=== PATIENT | male | born 1955 | race Caucasian/White ===

== ENCOUNTER 2018-09-24 07:23 | Day surgery (SDC) | payer OTHER ==
[~2018-09-24] VITALS: Ht 182.9 cm; Wt 85.8 kg
[~2018-09-24 07:23] MED LIST: ATORVASTATIN; IBUPROFEN; LISINOPRIL; NORVASC; PROAIR; SEROQUEL
[2018-09-24 07:58] VITALS: Ht 182.9 cm; Wt 85.8 kg
[2018-09-24 08:13] VITALS: BP 127/76; PULSE 80; RESP 18
--- NOTE | 2018-09-24 08:55 | PREAC ---
Date/Time of Note Date/Time of Note DATE: 09/24/18 TIME: 08:52 Anesthesia Eval and Record Evaluation Time Pre-Procedure Interview DATE: 09/24/18 TIME: 08:52 Age 63 Sex male NPO: 8 hrs Preoperative diagnosis Hx of Polyp Planned procedure Colonoscopy Past Medical History Past Medical History: Includes Cardio: HTN, Dyslipidemia Pulm: Asthma Musculoskeletal: Osteoarthritis Psych: Other (Schitzophrenia) Recreational drugs: Marijuana Surgery & Anesthesia Issues No known issue Meds Anticoagulation: No Beta Marcie within 24 hr: No Reason Beta Marcie not given: Pt. not on B-Marcie Reported Medications [Ibuprofen] No Conflict Check 09/24/18 [Proair] No Conflict Check 09/24/18 [Seroquel] No Conflict Check 09/24/18 [Norvasc] No Conflict Check 09/24/18 [Atorvastatin] No Conflict Check 09/24/18 [Lisinopril] No Conflict Check 09/24/18 Meds reviewed: Yes Allergies Coded Allergies: No Known Allergy (Unverified , 09/24/18) Allergies Reviewed: Yes Labs/Studies Labs Reviewed: Reviewed by anesthesiologist test: N/A Studies: ECG (n/a), CXR (n/a) Pre-procedure Exam Last vitals Vital Signs Date Temp Pulse Resp B/P (MAP) Pulse Ox O2 O2 Flow FiO2 Time Delivery Rate 09/24/18 99.0 80 18 127/76 95 Room Air 08:13 (93) Airway: Adequate mouth opening, Adequate thyromental dist Mallampati: Mallampati II Teeth: Normal Lung: Normal Heart: Normal ASA Physical Status ASA physical status: 3 Emergency: None Planned Anesthetic General/MAC: MAC Planned Pain Management Parenteral pain med Pre-operative Attestations Prior to commencing anesthesia and surgery, the patient was re-evaluated, there was verification of: *The patient's identity *The results of appropriate recent lab work and preoperative vital signs *The above evaluation not changing prior to induction *Anesthetic plan, risk benefits, alternative and complications discussed with patient/family; questions answered; patient/family understands, accepts and wishes to proceed. COLLIN SKY MD Sep 24, 2018 08:55
[2018-09-24] MEDS ORDERED: PROPOFOL 60 ML ONE (09:56)
--- NOTE | 2018-09-24 09:57 | PAC ---
Date/Time of Note Date/Time of Note DATE: 09/24/18 TIME: 09:56 Post-Anesthesia Notes Post-Anesthesia Note Last documented vital signs Vital Signs Date Temp Pulse Resp B/P (MAP) Pulse Ox O2 O2 Flow FiO2 Time Delivery Rate 09/24/18 99.0 80 18 127/76 95 Room Air 10:00 (93) Activity: WNL Respiratory function: WNL Cardiovascular function: WNL Mental status: Baseline Pain reasonably controlled: Yes Hydration appropriate: Yes Nausea/Vomiting absent: Yes COLLIN SKY MD Sep 24, 2018 09:57
[2018-09-24 10:28] VITALS: BP 115/69; RESP 23
== END 2018-09-24 10:42 | disposition home or self-care (01) ==
LOC: GIL 07:23
PROVIDERS: ATTEND Internal Medicine Gastroenterology
DX: Z12.11 Encounter for screening for malignant neoplasm of colon (principal); D12.3 Benign neoplasm of transverse colon; K64.8 Other hemorrhoids
CPT/HCPCS: 45380; 88305; Z7610